=== PATIENT | male | born 1965 | race American Indian/Alaskan Native ===

== ENCOUNTER 2018-01-03 00:15 | Emergency (ER) | payer SELFPAY ==
[2018-01-03] MEDS ORDERED: XYLOCAINE 1% 20 mL ONE (00:16)
[2018-01-03] MEDS ORDERED: NACL 0.9% 500 ML IR ONE (00:22)
[2018-01-03] MEDS ORDERED: XYLOCAINE 1% 20 mL INFILTRATI ONE (00:28)
[2018-01-03] MEDS ORDERED: NACL 0.9% IR ONE (00:29)
[2018-01-03 00:36] LABS: Hematocrit 33.9 % (35.5-45.6); Hemoglobin 11.3 gm/dl (11.8-15.2); Mean Corpuscular HGB Conc 33 % (32-34); Mean Corpuscular Hemoglobin 30 pg (28-32); Mean Corpuscular Volume 89 fl (84-94); Platelet Count 315 K/mm3 (140-440); Red Blood Count 3.79 M/mm3 (3.65-5.03); Red Cell Distribution Width 13.9 % (13.2-15.2)
[2018-01-03 00:46] LABS: BUN/Creatinine Ratio 9; Blood Urea Nitrogen 6 mg/dL (9-20); Calcium 8.6 mg/dL (8.4-10.2); Hemolysis Index 3; INR 1.02 (0.87-1.13); Partial Thromboplastin Time 29.5 Sec. (24.2-36.6)
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
[2018-01-03 02:45] VITALS: BP 124/79
--- NOTE | 2018-01-03 02:50 | Cat Scan Report ---
FINAL REPORT PROCEDURE: CT HEAD/BRAIN WO CON TECHNIQUE: Computerized tomography of the head was performed without contrast material. HISTORY: closed head injury/blunt trauma COMPARISON: No prior studies are available for comparison. FINDINGS: Skull and scalp: Mild soft tissue swelling over the left parietal region of the skull.. Paranasal sinuses: Normal. Ventricles and subarachnoid spaces: Normal. Cerebrum: No evidence of hemorrhage, acute infarction or mass . Cerebellum and brainstem: No evidence of hemorrhage, acute infarction or mass. Vasculature: Normal. Comments: None. IMPRESSION: There is no evidence of an acute intracranial process. Mild soft tissue swelling over the left parietal region of the skull.
[2018-01-03] MEDS ORDERED: BOOSTRIX IM ONE (03:10)
[2018-01-03] MEDS ORDERED: BACTRIM DS PO ONE (03:20)
== END 2018-01-03 04:05 | disposition home or self-care (01) ==
LOC: ED 00:15
DX: S01.81XA Laceration without foreign body of other part of head, initial encounter (principal); I10 Essential (primary) hypertension; F17.200 Nicotine dependence, unspecified, uncomplicated; X99.0XXA Assault by sharp glass, initial encounter; Y93.89 Activity, other specified; Y99.8 Other external cause status; Y92.89 Other specified places as the place of occurrence of the external cause
CPT/HCPCS: 36415; 70450; 80048; 85027; 85610; 85730; 90471; 90715